=== PATIENT | male | born 1955 | race Caucasian/White ===

== ENCOUNTER → 2021-05-03 | Day surgery (SDC) | payer OTHER ==
[2021-04-30 10:20] VITALS: BMI 23.0
[~2021-05-03] MED LIST: Lidocaine 1% MPF 2 ML VIAL ONE; PROPOFOL 20 ML ONE
== END ==
LOC: CSHSDC 09:15
PROVIDERS: ATTEND Internal Medicine Gastroenterology
PROC: 0DBM8ZZ Excision of Descending Colon, Via Natural or Artificial Opening Endoscopic (ICD-10-PCS; principal; 2021-05-03)
DX: Z12.11 Encounter for screening for malignant neoplasm of colon (principal); D12.4 Benign neoplasm of descending colon; K64.9 Unspecified hemorrhoids; K57.30 Diverticulosis of large intestine without perforation or abscess without bleeding
CPT/HCPCS: 88305; J2704